=== PATIENT | female | born 1970 | race Native Hawaiian/Other Pacific Islander ===

== ENCOUNTER 2017-04-07 15:03 | Observation (INO) | payer BC, OTHER ==
[~2017-04-07] VITALS: Ht 165.1 cm; Wt 75.0 kg
[2017-04-07 00:01] VITALS: PULSE 73
[~2017-04-07 15:03] MED LIST: FIORIC PO; LORTA5 PO; ZOFR4TAB3 SL
[2017-04-07 15:07] VITALS: BP 109/75; PULSE 70; RESP 17; TEMP 98; O2SAT 94
[2017-04-07 15:46] LABS: AUTOMATED NEUTROPHIL # 9.4 TH/MM3 (1.8-7.7); BASOPHIL % 0.4 % (0.0-2.0); EOSINOPHIL % 0.3 % (0.0-4.0); HEMATOCRIT 33.5 % (35.0-46.0); HEMO FLAGS DIFF FINAL; LYMPH % 13.9 % (9.0-44.0); LYMPHOCYTE # 1.6 TH/MM3 (1.0-4.8); MEAN CELL VOLUME 86.6 FL (80.0-100.0); MEAN CORPUSCULAR HEMOGLOBIN 30.1 PG (27.0-34.0); MEAN CORPUSCULAR HGB CONC 34.7 % (32.0-36.0); MONO % 5.3 % (0.0-8.0); NEUT % 80.1 % (16.0-70.0); PLATELET COUNT 208 TH/MM3 (150-450); RED BLOOD COUNT 3.87 MIL/MM3 (4.00-5.30); WHITE BLOOD COUNT 11.7 TH/MM3 (4.0-11.0)
--- NOTE | 2017-04-07 15:48 | PD ---
HPI Chief Complaint: Dizziness Stated Complaint: EVAC / POSS GI COMPLAINT Time Seen by Provider: 15:48 Travel History International Travel<30 days: No Contact w/Intl Traveler<30days: No Known affected area: No History of Present Illness HPI 47-year-old female with history of anemia and migraine headache presents to the emergency department for evaluation following an episode where she became dizzy , diaphoretic, and developed left shoulder pain while at work. Patient states that it subsided on its own, but it caused her to be scared. Denies any cardiac history. States that she is not doing anything out of her norm. She ate a regular lunch and breakfast today. Denies any recent illnesses, fever, or chills. She has no pain but states that she feels weak. She is nauseous. She has no other symptoms reported this time. History Social History Alcohol Use: No Tobacco Use: No Allergies-Medications (Allergen,Severity, Reaction): Coded Allergies: No Known Allergies (Verified , 04/07/17) Reported Meds & Prescriptions Reported Meds & Active Scripts Active No Active Prescriptions or Reported Medications Review of Systems Except as stated in HPI: all other systems reviewed are Neg Physical Exam Narrative GENERAL: Well-nourished female patient, in no acute distress SKIN: Focused skin assessment warm/dry. HEAD: Atraumatic. Normocephalic. EYES: Pupils equal and round. No scleral icterus. No injection or drainage. ENT: No nasal bleeding or discharge. Mucous membranes pink and moist. NECK: Trachea midline. No JVD. CARDIOVASCULAR: Regular rate and rhythm. No murmur appreciated. RESPIRATORY: No accessory muscle use. Clear to auscultation. Breath sounds equal bilaterally. GASTROINTESTINAL: Abdomen soft, non-tender, nondistended. Hepatic and splenic margins not palpable. MUSCULOSKELETAL: No obvious deformities. No clubbing. No cyanosis. No edema. NEUROLOGICAL: Awake and alert. No obvious cranial nerve deficits. Motor grossly within normal limits. Normal speech. PSYCHIATRIC: Appropriate mood and affect; insight and judgment normal. Data Data Last Documented VS Vital Signs Date Time Temp Pulse Resp B/P (MAP) Pulse Ox O2 Delivery O2 Flow Rate FiO2 04/07/17 19:24 70 16 100 Room Air 04/07/17 19:22 108/66 (80) 107/72 (84) 106/75 (85) 04/07/17 15:07 98.0 Orders Orders Electrocardiogram (04/07/17 15:24) Complete Blood Count With Diff (04/07/17 15:24) Comprehensive Metabolic Panel (04/07/17 15:24) Iv Access Insert/Monitor (04/07/17 15:24) Prochlorperazine Inj (Compazine Inj) (04/07/17 16:00) Diphenhydramine Inj (Benadryl Inj) (04/07/17 16:00) Sodium Chlor 0.9% 1000 Ml Inj (Ns 1000 M (04/07/17 16:00) Ckmb (Isoenzyme) Profile (04/07/17 15:53) Prothrombin Time / Inr (Pt) (04/07/17 15:53) Act Partial Throm Time (Ptt) (04/07/17 15:53) Troponin I (04/07/17 15:53) Lipase (04/07/17 15:53) Aspirin Chew (Aspirin Chew) (04/07/17 16:00) Orthostatic Vital Signs (04/07/17 18:09) Admit Order (Ed Use Only) (04/07/17 19:21) Activity Bed Rest With Brp (04/07/17 19:21) Vital Signs (Adult) Q4H (04/07/17 19:21) Cardiac Rhythm .As Directed (04/07/17 19:21) Notify Dr: Other .PRN (04/07/17 19:21) Notify Parameters (04/07/17 19:21) Resp Oxygen Nasal Cannula (04/07/17 ) Diet Npo (04/08/17 Breakfast) Diet Heart Healthy (04/07/17 Dinner) Ckmb (Isoenzyme) Profile (04/07/17 19:21) Ckmb (Isoenzyme) Profile (04/07/17 22:21) Troponin I (04/07/17 19:21) Troponin I (04/07/17 22:21) Electrocardiogram (04/07/17 19:21) Electrocardiogram (04/07/17 22:21) ^ Obtain (04/07/17 19:21) Sodium Chloride 0.9% Flush (Ns Flush) (04/07/17 19:30) Sodium Chloride 0.9% Flush (Ns Flush) (04/07/17 21:00) Acetaminophen (Tylenol) (04/07/17 19:30) Ondansetron Inj (Zofran Inj) (04/07/17 19:30) Pcu Rn / Telemetry RICKY.Q8H (04/07/17 19:21) Mack Bilateral/Knee High RICKY.QSHIFT (04/07/17 19:21) Labs Laboratory Tests Test 04/07/17 15:20 White Blood Count 11.7 TH/MM3 Red Blood Count 3.87 MIL/MM3 Hemoglobin 11.6 GM/DL Hematocrit 33.5 % Mean Corpuscular Volume 86.6 FL Mean Corpuscular Hemoglobin 30.1 PG Mean Corpuscular Hemoglobin Concent 34.7 % Red Cell Distribution Width 13.0 % Platelet Count 208 TH/MM3 Mean Platelet Volume 10.2 FL Neutrophils (%) (Auto) 80.1 % Lymphocytes (%) (Auto) 13.9 % Monocytes (%) (Auto) 5.3 % Eosinophils (%) (Auto) 0.3 % Basophils (%) (Auto) 0.4 % Neutrophils # (Auto) 9.4 TH/MM3 Lymphocytes # (Auto) 1.6 TH/MM3 Monocytes # (Auto) 0.6 TH/MM3 Eosinophils # (Auto) 0.0 TH/MM3 Basophils # (Auto) 0.0 TH/MM3 CBC Comment DIFF FINAL Differential Comment Prothrombin Time 11.0 SEC Prothromb Time International Ratio 1.0 RATIO Activated Partial Thromboplast Time 24.3 SEC Blood Urea Nitrogen 12 MG/DL Creatinine 0.57 MG/DL Random Glucose 89 MG/DL Total Protein 7.0 GM/DL Albumin 3.5 GM/DL Calcium Level 8.3 MG/DL Alkaline Phosphatase 49 U/L Aspartate Amino Transf (AST/SGOT) 8 U/L Alanine Aminotransferase (ALT/SGPT) 13 U/L Total Bilirubin 0.4 MG/DL Sodium Level 141 MEQ/L Potassium Level 3.6 MEQ/L Chloride Level 110 MEQ/L Carbon Dioxide Level 24.0 MEQ/L Anion Gap 7 MEQ/L Estimat Glomerular Filtration Rate 113 ML/MIN Total Creatine Kinase 42 U/L Troponin I LESS THAN 0.02 NG/ML Lipase 177 U/L MDM Medical Decision Making Medical Screen Exam Complete: Yes Emergency Medical Condition: Yes Medical Record Reviewed: Yes Differential Diagnosis Syncope versus near-syncope versus electrolyte abnormality versus arrhythmia versus other cardiac etiology Narrative Course 47 year-old female presents to emergency department following a near syncopal episode where she became diaphoretic, dizzy, nauseous, with left shoulder pain. Workup is initiated here in the triage ambulance hallway. Once a medical bed becomes available, patient will be transferred and care seen by that provider. Patient has moved to the medical pod and I will assume care along with my attending physician Dr. Peralta. She states that she does feel better however she still has some sensation of light headedness. Laboratory Tests Test 04/07/17 15:20 White Blood Count 11.7 TH/MM3 Red Blood Count 3.87 MIL/MM3 Hemoglobin 11.6 GM/DL Hematocrit 33.5 % Mean Corpuscular Volume 86.6 FL Mean Corpuscular Hemoglobin 30.1 PG Mean Corpuscular Hemoglobin Concent 34.7 % Red Cell Distribution Width 13.0 % Platelet Count 208 TH/MM3 Mean Platelet Volume 10.2 FL Neutrophils (%) (Auto) 80.1 % Lymphocytes (%) (Auto) 13.9 % Monocytes (%) (Auto) 5.3 % Eosinophils (%) (Auto) 0.3 % Basophils (%) (Auto) 0.4 % Neutrophils # (Auto) 9.4 TH/MM3 Lymphocytes # (Auto) 1.6 TH/MM3 Monocytes # (Auto) 0.6 TH/MM3 Eosinophils # (Auto) 0.0 TH/MM3 Basophils # (Auto) 0.0 TH/MM3 CBC Comment DIFF FINAL Differential Comment Prothrombin Time 11.0 SEC Prothromb Time International Ratio 1.0 RATIO Activated Partial Thromboplast Time 24.3 SEC Blood Urea Nitrogen 12 MG/DL Creatinine 0.57 MG/DL Random Glucose 89 MG/DL Total Protein 7.0 GM/DL Albumin 3.5 GM/DL Calcium Level 8.3 MG/DL Alkaline Phosphatase 49 U/L Aspartate Amino Transf (AST/SGOT) 8 U/L Alanine Aminotransferase (ALT/SGPT) 13 U/L Total Bilirubin 0.4 MG/DL Sodium Level 141 MEQ/L Potassium Level 3.6 MEQ/L Chloride Level 110 MEQ/L Carbon Dioxide Level 24.0 MEQ/L Anion Gap 7 MEQ/L Estimat Glomerular Filtration Rate 113 ML/MIN Lipase 177 U/L Lab work has been reviewed. Due to the patient's episode of left shoulder pain , diaphoresis was initially associated with lightheadedness, we feel it is in her best interest to be admitted to the chest pain center for admission and further evaluation. Plan is discussed with the patient and she is in agreement with this care. Diagnosis Primary Impression: Atypical chest pain Additional Impression: Near syncope Admitting Information Admitting Physician Requests: Observation Scripts No Active Prescriptions or Reported Meds Condition: Stable Britney Ivy Apr 07, 2017 15:48
[2017-04-07] MEDS ORDERED: ASPIRIN 81 MG CHEW TAB PO ONE (16:00)
[2017-04-07] MEDS ORDERED: diphenhydrAMINE HCL 50 MG/ML VIAL IV PUSH ONE (16:00)
[2017-04-07] MEDS ORDERED: SODIUM CHLOR 0.9% 1000 ML INJ 1,000 ML IV ONE (16:00)
[2017-04-07] MEDS ORDERED: PROCHLORPERAZINE INJ 10 MG/2 ML VIAL IV PUSH ONE (16:00)
[2017-04-07 16:19] LABS: ALT (GPT) 13 U/L (10-53); ANION GAP 7 MEQ/L (5-15); AST (GOT) 8 U/L (15-37); BLOOD UREA NITROGEN 12 MG/DL (7-18); CHLORIDE 110 MEQ/L (98-107); GLOMERULAR FILTRATION RATE 113 ML/MIN (>89); POTASSIUM 3.6 MEQ/L (3.5-5.1); SODIUM (NA) 141 MEQ/L (136-145)
[2017-04-07 16:22] LABS: ALKALINE PHOSPHATASE 49 U/L (45-117); TOTAL BILIRUBIN ADULT 0.4 MG/DL (0.2-1.0)
[2017-04-07 18:24] LABS: APTT (PATIENT) 24.3 SEC (24.3-30.1)
[2017-04-07 18:48] LABS: CREATINE KINASE 42 U/L (26-192)
[2017-04-07 19:22] VITALS: BP_SYST 106; BP_SYST 107; BP_SYST 108; BP_DIAS 66; BP_DIAS 72; BP_DIAS 75; RESP 16
[2017-04-07] MEDS ORDERED: ONDANSETRON HCL 4 MG/2 ML VIAL IV PUSH PRN (19:30)
[2017-04-07] MEDS ORDERED: ACETAMINOPHEN 500 MG CPLT PO PRN (19:30)
[2017-04-07] MEDS ORDERED: SODIUM CHLORIDE 0.9% FLUSH 10 ML FLUSH IV FLUSH PRN (19:30)
[2017-04-07] MEDS: SODIUM CHLORIDE 0.9% FLUSH 10 ML FLUSH IV FLUSH SCH (20:58)
[2017-04-07 21:10] LABS: CREATINE KINASE 50 U/L (26-192)
[2017-04-07 21:38] VITALS: BP 110/62; TEMP 98.5
[2017-04-08] VITALS: BP 100/59; PULSE 72; RESP 18; TEMP 98.2; O2SAT 97
[2017-04-08 00:01] VITALS: PULSE 73
[2017-04-08 04:08] VITALS: BP 115/65; PULSE 74; RESP 18; TEMP 98.4; O2SAT 98
[2017-04-08 06:50] VITALS: O2SAT 98
--- NOTE | 2017-04-08 08:10 | RADRPT ---
EXAM DATE/TIME: 04/08/2017 07:55 [facility] COMPARISON: No previous studies available for comparison. INDICATIONS : Chest pain. MEDICAL HISTORY : None. SURGICAL HISTORY : None. ENCOUNTER: Initial ACUITY: 1 day PAIN SCORE: 7/10 LOCATION: Bilateral upper chest FINDINGS: PA and lateral views of the chest demonstrate the lungs to be symmetrically aerated without evidence of mass, infiltrate or effusion. The cardiomediastinal contours are unremarkable. Osseous structure s are intact. CONCLUSION: No acute disease. Venancio Noyola MD on April 08, 2017 at 8:08 Board Certified Radiologist. This report was verified electronically.
[2017-04-08 08:28] VITALS: BP 102/66; PULSE 70; RESP 16; TEMP 98.3; O2SAT 98
[2017-04-08] MEDS: SODIUM CHLORIDE 0.9% FLUSH 10 ML FLUSH IV FLUSH SCH (09:07)
--- NOTE | 2017-04-08 09:38 | HHI.HP ---
[facility] Primary Care Physician Yee Kirkland M.D. Chief Complaint Chest pain History of Present Illness This is a 47-year-old female that presents to ED with a complaint of developing chest discomforts while she was at work yesterday. 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 About the same time she felt as if left arms going numb and developed a left upper chest pinching sensation. The symptoms lasted about an hour. She states she was short of breath and diaphoretic. She was nauseous with one episode of nonbloody emesis. States had a similar episode 2 months ago but was not as intense. She did not seek treatment. Denies recent illness. Denies fevers or chills. Review of Systems General: Patient denies fevers, chills recent, and recent travel HEENT: Patient denies headache, sore throat, difficulty swallowing. Cardiovascular: Has the chest discomfort as mentioned above. Denies sensation of heart beating rapidly or irregularly. No syncope. She felt diaphoretic. Respiratory: She was short of breath. Denies inspirational chest discomfort. Denies coughing wheezing or hemoptysis. GI: She was nauseous with one episode of emesis. Patient denies diarrhea, abdominal pain, bloody stools. Musculoskeletal: Patient denies joint pain or edema. Denies calf pain or edema. Neurovascular: Patient denies numbness, tingling, weakness in extremities. Denies headache. Endocrine: Denies polyuria and polydipsia. Hematologic: Denies easy bruising. Skin: Denies rash or itching. Past Family Social History Allergies: Coded Allergies: No Known Allergies (Verified , 04/07/17) Past Medical History Denies hypertension, hyperlipidemia, diabetes, and CAD. Past Surgical History Noncontributory. Reported Medications Reported Meds & Active Scripts Active No Active Prescriptions or Reported Medications Active Ordered Medications Current Medications Medications (Trade) Dose Ordered Sig/Mehran Route Start Time Stop Time Status Last Admin (NS Flush) 2 ml UNSCH PRN IV FLUSH 04/07/17 19:30 (NS Flush) 2 ml BID IV FLUSH 04/07/17 21:00 04/08/17 09:07 (Tylenol) 500 mg Q4H PRN PO 04/07/17 19:30 (Zofran Inj) 4 mg Q6H PRN IV PUSH 04/07/17 19:30 Family History States her father at 62 myocardial infarction. Social History Patient is a lifetime nonsmoker. Denies illicit drugs. Rarely has alcohol. Physical Exam Vital Signs Vital Signs Date Time Temp Pulse Resp B/P (MAP) Pulse Ox O2 Delivery O2 Flow Rate FiO2 04/08/17 08:28 98.3 70 16 102/66 (78) 98 04/08/17 06:50 98 21 04/08/17 04:08 98.4 74 18 115/65 (82) 98 04/08/17 00:01 73 04/08/17 00:00 98.2 72 18 100/59 (73) 97 04/07/17 21:38 98.5 71 16 110/62 (78) 99 04/07/17 19:24 70 16 100 Room Air 04/07/17 19:22 70 16 108/66 (80) 73 16 107/72 (84) 78 16 106/75 (85) 04/07/17 15:07 98.0 70 17 109/75 (86) 94 Physical Exam GENERAL: This is a well-nourished, well-developed patient, in no apparent distress. Patient speaks in clear complete sentences. Patient is pleasant. HEENT: Head is atraumatic and normocephalic. Neck is supple without lymphadenopathy and trachea is midline. No JVD or carotid bruits. CARDIOVASCULAR: Regular rate and rhythm without murmurs, gallops, or rubs. RESPIRATORY: Clear to auscultation. Breath sounds equal bilaterally. No wheezes , rales, or rhonchi. Chest wall is tender reproducing the chest discomfort that brought her to the ED. No use of accessory muscles. GASTROINTESTINAL: Abdomen is nontender, nondistended. Abdomen soft. No obvious pulsatile mass or bruit. No CVA tenderness. Strong femoral pulses bilaterally. Normal bowel sounds in all quadrants. MUSCULOSKELETAL: Patient is moving upper and lower extremities freely. No calf tenderness or edema, no Homans sign. Strong pulses in upper and lower extremities. NEUROLOGICAL: Patient is alert and oriented. Cranial nerves 2-12 are grossly intact. No focal deficits and speech is clear. SKIN: No rash and turgor is normal. Laboratory Laboratory Tests Test 04/07/17 15:20 04/07/17 20:20 04/07/17 23:48 White Blood Count 11.7 Red Blood Count 3.87 Hemoglobin 11.6 Hematocrit 33.5 Mean Corpuscular Volume 86.6 Mean Corpuscular Hemoglobin 30.1 Mean Corpuscular Hemoglobin Concent 34.7 Red Cell Distribution Width 13.0 Platelet Count 208 Mean Platelet Volume 10.2 Neutrophils (%) (Auto) 80.1 Lymphocytes (%) (Auto) 13.9 Monocytes (%) (Auto) 5.3 Eosinophils (%) (Auto) 0.3 Basophils (%) (Auto) 0.4 Neutrophils # (Auto) 9.4 Lymphocytes # (Auto) 1.6 Monocytes # (Auto) 0.6 Eosinophils # (Auto) 0.0 Basophils # (Auto) 0.0 CBC Comment DIFF FINAL Differential Comment Prothrombin Time 11.0 Prothromb Time International Ratio 1.0 Activated Partial Thromboplast Time 24.3 Blood Urea Nitrogen 12 Creatinine 0.57 Random Glucose 89 Total Protein 7.0 Albumin 3.5 Calcium Level 8.3 Alkaline Phosphatase 49 Aspartate Amino Transf (AST/SGOT) 8 Alanine Aminotransferase (ALT/SGPT) 13 Total Bilirubin 0.4 Sodium Level 141 Potassium Level 3.6 Chloride Level 110 Carbon Dioxide Level 24.0 Anion Gap 7 Estimat Glomerular Filtration Rate 113 Total Creatine Kinase 42 50 Troponin I LESS THAN 0.02 LESS THAN 0.02 LESS THAN 0.02 Lipase 177 Result Diagram: 04/07/17 1520 04/07/17 1520 Course EKGs have been sinus rhythm without significant ST segment depressions or elevations. There are nonspecific T-wave changes. Caprini VTE Risk Assessment Caprini VTE Risk Assessment: No/Low Risk (score <= 1) Caprini Risk Assessment Model Point Value = 1 Point Value = 2 Point Value = 3 Point Value = 5 Age 41-60 Minor surgery BMI > 25 kg/m2 Swollen legs Varicose veins or History of unexplained or recurrent spontaneous Oral contraceptives or hormone replacement Sepsis (< 1 month) Serious lung disease, including pneumonia (< 1 month) Abnormal pulmonary function Acute myocardial infarction Congestive heart failure (< 1 month) History of inflammatory bowel disease Medical patient at bed rest Age 61-74 Arthroscopic surgery Major open surgery (> 45 min) Laparoscopic surgery (> 45 min) Malignancy Confined to bed (> 72 hours) Immobilizing plaster cast Central venous access Age >= 75 History of VTE Family history of VTE Factor V Leiden Prothrombin [id number] Lupus anticoagulant Anticardiolipin antibodies Elevated serum homocysteine Heparin-induced thrombocytopenia Other congenital or acquired thrombophilia Stroke (< 1 month) Elective arthroplasty Hip, pelvis, or leg fracture Acute spinal cord injury (< 1 month) Prophylaxis Regimen Total Risk Factor Score Risk Level Prophylaxis Regimen 0-1 Low Early ambulation 2 Moderate Order ONE of the following: *Sequential Compression Device (SCD) *Heparin 5000 units SQ BID 3-4 Higher Order ONE of the following medications: *Heparin 5000 units SQ TID *Enoxaparin/Lovenox 40 mg SQ daily (WT < 150 kg, CrCl > 30 mL/min) *Enoxaparin/Lovenox 30 mg SQ daily (WT < 150 kg, CrCl > 10-29 mL/min) *Enoxaparin/Lovenox 30 mg SQ BID (WT < 150 kg, CrCl > 30 mL/min) AND/OR *Sequential Compression Device (SCD) 5 or more Highest Order ONE of the following medications: *Heparin 5000 units SQ TID (Preferred with Epidurals) *Enoxaparin/Lovenox 40 mg SQ daily (WT < 150 kg, CrCl > 30 mL/min) *Enoxaparin/Lovenox 30 mg SQ daily (WT < 150 kg, CrCl > 10-29 mL/min) *Enoxaparin/Lovenox 30 mg SQ BID (WT < 150 kg, CrCl > 30 mL/min) AND *Sequential Compression Device (SCD) Assessment and Plan Assessment and Plan * Chest pain: Patient has had serial cardiac enzymes and EKGs for ruling out purposes. She will be seen by Dr. Ceron of cardiology in the chest pain center and undergo a Alejandro protocol ETT. She'll be discharged home if stress test is nonischemic. She needs to follow-up with local PCP. Patient is stable at this time. She is agreeable to this plan. Clifton Vazquez Apr 08, 2017 09:38
[2017-04-08] MEDS ORDERED: KETOROLAC TROMETHAMINE 30 MG/ML (IVP) VIAL IVP ONE (09:45)
--- NOTE | 2017-04-08 12:49 | TR ---
Date Performed: 04/08/2017 Time Performed: 10:54:32 DOCTOR: Carlos Ceron DRUG LIST: CLINICAL HISTORY: REASON FOR TEST: Chest pain REASON FOR ENDING: OBSERVATION: CONCLUSION: POPPY PROTOCOL. NO CP. TEST STOPPED AFTER EXCEEDING GOAL HR SECONDARY TO SOB AND LEG FATIGUE.Maximum VG=551 % Max HR Achieved=87.0% Maximum PV=723/96 Total Exercise Time=8:01 COMMENTS: Conclusion: Normal treadmill exercise. No evidence of ischemia.
--- NOTE | 2017-04-08 12:51 | HHI.DCPOC ---
Discharge Care Plan Diagnosis: (1) Atypical chest pain Goals to Promote Your Health * To prevent worsening of your condition and complications * To maintain your health at the optimal level Directions to Meet Your Goals Take your medications as prescribed Follow your dietary instruction Follow activity as directed Keep your appointments as scheduled Take your immunizations and boosters as scheduled If your symptoms worsen call your PCP, if no PCP go to Urgent Care Center or Emergency Room Smoking is Dangerous to Your Health. Avoid second hand smoke Call the 24-hour hour crisis hotline for domestic abuse at Clifton Vazquez Apr 08, 2017 12:51
--- NOTE | 2017-04-08 14:43 | EKG ---
Date Performed: 04/08/2017 Time Performed: 00:13:38 PTAGE: 47 years EKG: Sinus rhythm NONSPECIFIC T-WAVE ABNORMALITY BORDERLINE ECG PREVIOUS TRACING : 04/07/2017 20.28 Since previous tracing, no significant change noted DOCTOR: Carlos Ceron Interpretating Date/Time 04/08/2017 14:42:06
--- NOTE | 2017-04-08 14:47 | EKG ---
Date Performed: 04/07/2017 Time Performed: 20:28:07 PTAGE: 47 years EKG: Sinus rhythm NONSPECIFIC T-WAVE ABNORMALITY BORDERLINE ECG PREVIOUS TRACING : 04/07/2017 15.34 Since previous tracing, no significant change noted DOCTOR: Carlos Ceron Interpretating Date/Time 04/08/2017 14:44:46
--- NOTE | 2017-04-08 14:48 | EKG ---
Date Performed: 04/07/2017 Time Performed: 15:34:20 PTAGE: 47 years EKG: Sinus rhythm NORMAL ECG PREVIOUS TRACING : 11/22/2004 00.49 Since previous tracing, no significant change noted DOCTOR: Carlos Ceron Interpretating Date/Time 04/08/2017 14:46:19
== END 2017-04-08 15:14 | disposition home or self-care (01) ==
LOC: NEPD 15:03 → NEDA 19:24 → NEPGCP 22:07
DX: R07.89 Other chest pain (principal); M25.512 Pain in left shoulder; D64.9 Anemia, unspecified; R61 Generalized hyperhidrosis; R11.2 Nausea with vomiting, unspecified
CPT/HCPCS: 71020; 80053; 82550; 83690; 84484; 85025; 85610; 85730; 93005; 93017; 96361; 96374; 96375; 99285; G0378; J0780; J1200; J1885; J7030